=== PATIENT | female | born 1960 | race Two or more races ===

== ENCOUNTER 2020-01-24 21:48 | Emergency (ER) | payer MEDICAID ==
[~2020-01-24] VITALS: Ht 149.9 cm; Wt 57.0 kg
[2020-01-24 22:03] VITALS: BP 134/71
== END 2020-01-25 00:29 | disposition left against medical advice (07) ==
LOC: ER 21:48
DX: Z53.21 Procedure and treatment not carried out due to patient leaving prior to being seen by health care provider (principal); I10 Essential (primary) hypertension